=== PATIENT | male | born 1970 | race Caucasian/White ===

== ENCOUNTER 2019-06-15 08:19 | Emergency (ER) | payer OTHER, SELFPAY ==
--- NOTE | ~2019-06-15 | CT_ITS ---
EXAMINATION: CT abdomen pelvis w con EXAM DATE: 06/15/2019 09:04 INDICATION: Right inguinal pain, fever. TECHNIQUE: Spiral CT of the abdomen and pelvis was performed following intravenous injection of 100 m L Omnipaque 350. Axial, coronal and sagittal images were reviewed. The dose-length product (DLP) fo r this examination was 557.00 mGy-cm. The exposure was tailored according to patient size (auto mA e xposure control), and iterative reconstruction (ASIR) was used as additional dose reduction technique . Comparison is made to prior examination from 01/15/2009. FINDINGS: Small to moderate size right inguinal fat-containing hernia. There is also some ill-defined fat deep to the right inguinal canal which has mild stranding, mildly edematous, possible region of developing fat necrosis. The liver, spleen, adrenal glands and pancreas are unremarkable. There are cholecystectomy clips. Portal and splenic veins are patent. Kidneys enhance symmetrically. There i s no hydronephrosis. There is 2-3 mm right mid calyceal stone. There is similar sized density along t he course of the right mid ureter, could be vascular given the absence of hydronephrosis. Nonobstruct ing mid ureteral stone not excludable. The prostate is unremarkable. The bladder is unremarkable. There is no retroperitoneal or pelvic lymphadenopathy. Probable identification of a normal appendix. No pericecal inflammation. There is mild scattered colo lauren diverticulosis. There is no adjacent inflammatory change to suggest diverticulitis. There is sma ll sliding gastroesophageal hiatal hernia. There is expected amount of colonic stool. No free intr aperitoneal gas. Borderline heart size. There is 4 mm right posterior sulcal pleural-based intrapa renchymal nodule likely postinfectious. There are no osteoblastic or osteolytic lesions identified. IMPRESSION: 1. Small to moderate sized fat-containing right inguinal hernia. 2. Fat stranding deep to the right inguinal hernia which could be developing region of fat necrosis. 3. Right nephrolithiasis. Possible nonobstructing right mid ureteral stone versus vascular calcifica tion. No hydronephrosis. 4. Scattered colonic diverticulosis. 5. Right lower lobe 4 mm nodule likely postinfectious. Optional one-year follow-up low-dose chest C T, or this could be reevaluated on any follow-up abdomen pelvis CT. Reviewed, dictated and finalized at location B. [employer] IMPRESSION: 1. Small to moderate sized fat-containing right inguinal hernia. 2. Fat stranding deep to the right inguinal hernia which could be developing r egion of fat necrosis. 3. Right nephrolithiasis. Possible nonobstructing right mid ureteral stone sam rafaela vascular calcification. No hydronephrosis. 4. Scattered colonic diverticulosis. 5. Right lower lobe 4 mm nodule likely postinfectious. Optional one-year foll ow-up low-dose chest CT, or this could be reevaluated on any follow-up abdomen pelvis CT.
[2019-06-15 08:24] VITALS: BP 154/99; PULSE 87; RESP 16; TEMP 37.1; O2SAT 98
[2019-06-15 08:29] VITALS: BP 154/99; PULSE 97; RESP 18; O2SAT 98
--- NOTE | 2019-06-15 08:34 | PC.NURSE ---
SALAZAR MARTINEZ AT BEDSIDE FOR PT ASSESSMENT.
--- NOTE | 2019-06-15 08:40 | ED.MALEGU ---
HPI - Male Genitourinary General Chief complaint: Urogenital-Male Stated complaint: right groin pain Time Seen by Provider: 06/15/19 08:27 Source: patient Mode of arrival: ambulatory Limitations: no limitations History of Present Illness HPI Narrative: A 49 y/o male pt presents to the ED, with c/o acute rt inguinal pain that began this morning at 0640. Pt states he was driving to work when he began feeling nauseated and felt the emergent need to have a bowel movement. He states that he did have a bowel movement, but denies any blood in his stool or diarrhea. He notes feeling nauseated and having dry-heaves following his bowel movement. He states that the pain is constant and worsens when standing straight up, however when putting direct pressure to his rt lower inguinal he feels some relief. Pt notes having a similar episode to this about 15 years ago, that they thought was an inguinal hernia, but it ended up being inflammation. He states that he currently feels like he has to have a bowel movement and notes feeling pressure to his RLQ, but denies any fever, swelling to genitalia , dysuria, or hematuria. Complaint: other (rt inguinal pain) Onset (ago): hour(s) (3) Duration: constant Location: right inguinal region Radiation: abdomen (pressure in RLQ) Relieving factors: other (applying direct pressure to rt inguinal region) Exacerbating factors: other (standing straight up) Associated symptoms: Reports nausea/vomiting and other (sudden urge to pass stool, dry-heaves) Related Data Allergies Allergy/AdvReac Type Severity Reaction Status Date / Time No Known Allergies Allergy Unverified 06/15/19 08:31 Review of Systems Review of Systems: All systems reviewed & are unremarkable except as noted in HPI and below Constitutional: Constitutional: Denies fever(s) Gastrointestinal: Gastrointestinal: Reports abdominal pain (pressure in RLQ), Denies hematochezia, Reports change in bowel habits (sudden urge to pass stool), Reports tenesmus, Denies diarrhea, Reports nausea, Reports vomiting and Reports other (dry-heaves) Genitourinary: Genitourinary: Denies hematuria, Denies dysuria, Denies scrotal swelling and Reports other (rt inguinal pain) [facility] Past Medical History Medical History (Updated 06/15/19 @ 10:06 by Sigifredo Bowling MD) Asthma Irritable bowel Plaque psoriasis Surgical History Surgical History (Updated 06/15/19 @ 10:02 by Madonna Rosas [employer]) History of cholecystectomy History of vasectomy Social History Social History (Updated 06/15/19 @ 09:39 by Madonna Rosas [employer]) Smoking status: Never smoker Gender identity (if verbalized by the patient): Male Exam Const: General: healthy appearing and no acute distress Nutritional Appearance: well nourished HENMT: Mouth: Yes lip normal and Yes moist mucous membranes Eyes: Conjunctivae: conjunctivae normal Pupils: Equal, round and reactive pupils present Resp: Effort & Inspection: normal respiratory effort Auscultation: clear to auscultation bilaterally Cardio: Rate: regular rate Rhythm: regular rhythm Heart sounds: no murmurs GI: GI Palp: No Soft to palpation and No Tenderness to palpation present (GI) Auscultation: normal bowel sounds : Male General Exam: Yes tenderness (mild rt inguinal) Scrotum: scrotum normal Testes: Testes normal Back/Spine/Pelvis: Other: Full ROM Skin: General skin exam: normal color, dry skin and other (warm) Neuro: General: patient oriented x3 (alert) Speech: normal speech Extrem: General: full ROM Psych: Mental Status: mental status grossly normal Affect: normal affect Course Vital Signs Vital signs: Vital Signs Temperature 37.1 C 06/15/19 08:24 Pulse Rate 87 06/15/19 08:24 Respiratory Rate 16 06/15/19 08:24 Blood Pressure 154/99 H 06/15/19 08:24 Pulse Oximetry 98 06/15/19 08:24 Temperature 37.1 C 06/15/19 08:24 Pulse Rate 74 06/15/19 10:30 Respiratory Rate 16 06/15/19 1
[2019-06-15 08:48] LABS: Basophils Absolute Auto 0.1 K/mm3 (0.0-0.1); Basophils Percent Auto 0.8 % (0.2-1.2); Eosinophils Absolute Auto 0.1 K/mm3 (0-0.3); Eosinophils Percent Auto 0.6 % (0-4.4); Hematocrit 53.9 % (42.0-52.0); Hemoglobin 17.8 g/dL (14.0-18.0); Immature Granulocyte Absolute 0.07 K/mm3 (0.00-0.031); Immature Granulocyte Percent A 0.7 % (0-0.5); Lymphocytes Absolute Auto 1.62 K/mm3 (0.9-3.2); Lymphocytes Percent Auto 16.4 % (18.3-44.2); Mean Corpuscular Hemoglobin 29.9 pg (26-34); Mean Corpuscular Volume 90.6 fl (80-100); Mean Platelet Volume 9.6 fl (7.4-10.4); Monocytes Absolute Auto 0.6 K/mm3 (0.1-0.6); Monocytes Percent Auto 6.1 % (2.6-8.5); Neutrophils Absolute Auto 7.4 K/mm3 (1.3-6.7); Neutrophils Percent Auto 75.4 % (45.5-73.1); Platelet Count Result 337 k/mm3 (150-375); Red Blood Count 5.95 M/mm3 (4.6-6.20); Red Cell Distribution Width 12.8 % (11.5-14.5); White Blood Count 9.9 K/mm3 (4.5-10.0)
[2019-06-15 08:56] LABS: Blood Urea Nitrogen 15 mg/dL (8-26); Estimated CRCL calculation 56 ml/min; Estimated Glomerular Filt Rate 58
[2019-06-15 08:59] LABS: Add Urine Microscopic? YES; Appearance Urine Clear (Clear); Bacteria Urine Trace /hpf; Bilirubin Urine Negative (Negative); Blood Urine 2+ (Negative); Color Urine Yellow (Yellow); Glucose Urine UA Negative (Negative); Ketones Urine Trace mg/dL (Negative); Leukocyte Esterase Ur Negative LEU/UL (Negative); Mucus Urine Few /lpf; Nitrate Urine Negative (Negative); Protein Urine 1+ mg/dL (Negative); RBC Urine >75 /hpf (0-2); Specific Grav Ur 1.021 (1.001-1.035); Squamous Epithelial Cell Urine Rare /hpf (Few); Urobilinogen Urine Negative mg/dL (<2.0)
[2019-06-15 09:00] LABS: Alanine Aminotransferase 32 U/L (4-50); Albumin Level 4.8 g/dL (3.5-5.1); Alkaline Phosphatase 69 U/L (38-126); Aspartate Amino Transferase 34 U/L (17-59); Bilirubin,Total 0.7 mg/dL (0.2-1.3); Blood Urea Nitrogen 15 mg/dL (9-20); Calcium 9.9 mg/dL (8.4-10.2); Carbon Dioxide 28 mmol/L (22-30); Chloride 99 mmol/L (98-107); Estimated CRCL calculation 61 ml/min; Estimated Glomerular Filt Rate > 60; Glucose 102 mg/dL (75-110); Potassium 3.9 mmol/L (3.4-5.0); Sodium 139 mmol/L (137-145)
--- NOTE | 2019-06-15 09:09 | PC.NURSE ---
PT BACK FROM CT AT THIS TIME.
[2019-06-15] MEDS: KETOROLAC 30 MG/ML VIAL (*BKC) IV PUSH (09:36)
[2019-06-15 09:37] VITALS: BP 129/82; PULSE 74; RESP 16; O2SAT 98
[2019-06-15] MEDS: TAMSULOSIN HCL 0.4 MG CAPSULE PO (10:26)
[2019-06-15 10:30] VITALS: BP 103/66; PULSE 74; RESP 16; O2SAT 96
== END 2019-06-15 10:32 | disposition home or self-care (01) ==
PROVIDERS: Emergency Provider Emergency Medicine
DX: K40.90 Unilateral inguinal hernia, without obstruction or gangrene, not specified as recurrent (principal)
CPT/HCPCS: 36415; 74177; 80053; 81001; 85025; 96374; 96375; 99284; A9270; J1885; J3010; Q9967

== ENCOUNTER 2019-06-23 08:43 | Outpatient (CLI) | payer OTHER, SELFPAY ==
--- NOTE | ~2019-06-23 | XR_ITS ---
XR abdomen/kub 1V 06/25/2019 07:10 Indication: Kidney stones. Right abdominal pain. Procedure: KUB Comparison: 06/23/2019 Findings: Right renal stones noted on prior KUB R obscured by overlying bowel content. There is a desean cification in the right pelvis near the expected location of the UVJ, consistent with a 3 mm distal r ight ureteral stone. Bowel gas pattern is nonobstructive. No acute osseous abnormality. There are pel shivani phleboliths. There are cholecystectomy clips. Impression: 1: Distal right ureteral stone measuring 3 mm, unchanged. Reviewed, dictated and finalized at location B. 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
--- NOTE | ~2019-06-23 | XR_ITS ---
EXAMINATION: XR abdomen/kub 1V DATE: 06/23/2019 09:35 INDICATION: Right flank pain. TECHNIQUE: A supine view of the abdomen on 2 radiographs was obtained. COMPARISON: CT abdomen and pelvis 06/15/2019 FINDINGS: There are no dilated loops of bowel. There are two 3 mm stones in right kidney. There is a 3 mm stone in distal right ureter. There are phleboliths in left pelvis. IMPRESSION: 1. 3 mm stone in distal right ureter. 2. Two 3 mm right kidney stones. Reviewed, dictated and finalized at location A. L TRANSFERRER
[2019-06-23 08:48] VITALS: BP 146/97; PULSE 96; RESP 16; TEMP 36.7; O2SAT 98
--- NOTE | 2019-06-23 09:04 | ED.ABDPAIN ---
HPI - Abdominal Pain General Chief Complaint: Abdominal Pain Stated Complaint: right groin pain/hx kidney stone Time Seen by Provider: 06/23/19 09:00 Source: patient Mode of arrival: ambulatory Limitations: no limitations History of Present Illness HPI narrative: Pt is a 49 y/o male who presents to the ED with c/o RLQ ABD pain that started 8 days ago. He states that he came to the ED 8 days ago and was Dx with an inguinal hernia and a possible kidney stone. Pt was D/C home with Toradol and Flomax. He followed up with his PCP and has an appointment with Dr. Lewis, a general surgeon about his hernia. He does not have follow up with a urologist. He states that the Toradol has been helping but this morning he woke up with the same pain. He took Tylenol 1000mg at 0630 with no relief. Pt states that he feels like he needs to have a BM. He denies being nauseas in the ED bed. Pt also states that he gets a burning sensation at the tip of his penis and he has frequent but decreased urine output. MD elicited complaint: abdominal pain Pertinent past history: other (possible kidney stone) Onset (ago): day(s) (8) Pain Consistency: intermittent Location: RLQ Relieving factors: nothing Context: confirms history of similar episodes Associated symptoms: other (urinary frequency, oliguria, penile pain) Related Data Allergies Allergy/AdvReac Type Severity Reaction Status Date / Time No Known Allergies Allergy Unverified 06/15/19 08:31 Review of Systems Review of Systems: All systems reviewed & are unremarkable except as noted in HPI and below Gastrointestinal: Gastrointestinal: Reports abdominal pain (RLQ) and Denies nausea Genitourinary: Genitourinary: Reports oliguria, Reports urinary frequency and Reports other (burning pain to tip of penis) [facility] Past Medical History Medical History Asthma Irritable bowel Plaque psoriasis Surgical History Surgical History History of cholecystectomy History of vasectomy Family History Family History (Updated 06/17/19 @ 09:32 by Rani Peguero) Father Hypertension A-fib Mother CAD (coronary artery disease) Social History Social History Smoking status: Never smoker Alcohol intake: current 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 Gender identity (if verbalized by the patient): Male Exam Const: General: cooperative, no acute distress and alert Nutritional Appearance: well nourished Orientation/consciousness: patient oriented x3 Limitations: no limitations HENMT: Mouth: Yes lip normal and Yes moist mucous membranes Resp: Effort & Inspection: normal respiratory effort Auscultation: clear to auscultation bilaterally Cardio: Rate: regular rate Rhythm: regular rhythm GI: GI Palp: Yes Soft to palpation, Yes Tenderness to palpation present (GI) (RLQ) and Yes Other GI palpation findings present (no bulge or tenderness to rt inguinal region) Auscultation: normal bowel sounds Back/Spine/Pelvis: Back: CVA tenderness (rt) Skin: General skin exam: normal color Lesions: lesion noted (psoriasis) back Neuro: General: patient oriented x3 Cognition (Neuro): normal cognition Speech: normal speech Extrem: General: normal to inspection, full ROM and no clubbing, cyanosis or edema Psych: Mental Status: mental status grossly normal Affect: normal affect Attitude: cooperative Course Course Emergency Course: Patient presents with recurrent right flank and abdominal pain related to suspected right ureteral stone noted on CT scan last week. Pain improved significantly with Toradol in the emergency department. KUB shows migration of the stone compared to prior evaluation. Patient is out of Flomax and Toradol. These medications will be refilled and patient prescribe Zofran due to some intermittent nausea he has had. Fo
[2019-06-23] MEDS: KETOROLAC 30 MG/ML VIAL (*BKC) IV PUSH (09:40)
[2019-06-23 09:43] LABS: Basophils Absolute Auto 0.1 K/mm3 (0.0-0.1); Basophils Percent Auto 0.7 % (0.2-1.2); Eosinophils Absolute Auto 0.1 K/mm3 (0-0.3); Eosinophils Percent Auto 0.7 % (0-4.4); Hematocrit 51.2 % (42.0-52.0); Hemoglobin 17.4 g/dL (14.0-18.0); Immature Granulocyte Percent A 1.1 % (0-0.5); Lymphocytes Absolute Auto 1.84 K/mm3 (0.9-3.2); Lymphocytes Percent Auto 19.3 % (18.3-44.2); Mean Corpuscular Hemoglobin 29.9 pg (26-34); Mean Corpuscular Volume 88.1 fl (80-100); Mean Platelet Volume 9.4 fl (7.4-10.4); Monocytes Absolute Auto 0.6 K/mm3 (0.1-0.6); Neutrophils Absolute Auto 6.9 K/mm3 (1.3-6.7); Neutrophils Percent Auto 72.2 % (45.5-73.1); Platelet Count Result 351 k/mm3 (150-375); Red Blood Count 5.81 M/mm3 (4.6-6.20); Red Cell Distribution Width 12.6 % (11.5-14.5); White Blood Count 9.5 K/mm3 (4.5-10.0)
[2019-06-23 09:55] LABS: Add Urine Microscopic? YES; Alanine Aminotransferase 31 U/L (4-50); Albumin Level 4.6 g/dL (3.5-5.1); Alkaline Phosphatase 63 U/L (38-126); Appearance Urine Clear (Clear); Aspartate Amino Transferase 31 U/L (17-59); Bilirubin Urine Negative (Negative); Bilirubin,Total 0.9 mg/dL (0.2-1.3); Blood Urea Nitrogen 16 mg/dL (9-20); Blood Urine 3+ (Negative); Calcium 9.9 mg/dL (8.4-10.2); Carbon Dioxide 26 mmol/L (22-30); Chloride 101 mmol/L (98-107); Color Urine Yellow (Yellow); Estimated CRCL calculation 48 ml/min; Estimated Glomerular Filt Rate 49; Glucose 99 mg/dL (75-110); Glucose Urine UA Negative (Negative); Ketones Urine Negative (Negative); Leukocyte Esterase Ur Negative LEU/UL (Negative); Mucus Urine Heavy /lpf; Nitrate Urine Negative (Negative); Protein Urine 1+ mg/dL (Negative); RBC Urine >75 /hpf (0-2); Sodium 137 mmol/L (137-145); WBC Urine 0-3 /hpf
[2019-06-23] MEDS: ACETAMINOPHEN 500 MG TABLET 1000 MG PO (12:21)
[2019-06-23] MEDS: TAMSULOSIN HCL 0.4 MG CAPSULE PO (12:22)
[2019-06-23 12:25] VITALS: BP 145/88; PULSE 63; RESP 18; O2SAT 100
== END 2019-06-25 06:54 | disposition home or self-care (01) ==
LOC: ANHED 12:12 → ANHIMG 06-25 06:56
PROVIDERS: Emergency Provider Emergency Medicine; Visit Provider Urology
DX: N20.1 Calculus of ureter (principal)
CPT/HCPCS: 36415; 74018; 80053; 81001; 85025; 96374; 99284; A9270; J1885

== ENCOUNTER 2019-07-13 09:58 | Outpatient (CLI) | payer OTHER, SELFPAY ==
--- NOTE | ~2019-07-13 | XR_ITS ---
XR abdomen/kub 1V 07/13/2019 10:13 INDICATION: Flank pain TECHNIQUE: KUB COMPARISON: Comparison to multiple prior studies sequentially, with oldest reviewed study dated 06/15. FINDINGS: Bowel gas pattern is normal. There is no evidence of free air, mass, organomegaly, ascites or obstruction. There are multiple pelvic phleboliths, stable. No definite ureteral stones identifie d on the current study. The bones appear intact. IMPRESSION: 1: No acute abdominal abnormality identified. Reviewed, dictated and finalized at location A.
== END 2019-07-13 09:59 | disposition home or self-care (01) ==
PROVIDERS: Visit Provider Urology
DX: N20.1 Calculus of ureter (principal)
CPT/HCPCS: 74018

== ENCOUNTER 2019-08-11 00:28 | Day surgery (SDC) | payer OTHER, SELFPAY ==
[2019-08-09 13:45] VITALS: BMI 33.6
[2019-08-11] VITALS (8 sets, daily range): BP systolic 72–133; BP diastolic 45–83; PULSE 62–70; RESP 12–20; TEMP 36.2–36.4; O2SAT 89–98
[2019-08-11] MEDS: LACTATED RINGERS 1,000 ML 30 ML IV CONT ×3 (06:30→09:45)
--- NOTE | 2019-08-11 07:17 | WPDANESEPPF ---
Anes - Initial Pre Proc Eval Procedure: Operation Date: 08/11/19 07:30 Proposed Procedures p Laparoscopic Right Inguinal Hernia Repair with Mesh, Davinci Assisted - Carlos Alberto Lewis DO Date/Time: 08/11/19 07:17 Surgeon: Carlos Alberto Lewis DO Pre Op Diagnosis: Right Inguinal Hernia Patient Data Age: 49 Gender: M Height: 5 ft 1 in Weight: 81.9 kg Last Vital Signs Temp 97.5 F L 08/11/19 06:24 Pulse 64 08/11/19 06:24 Resp 20 08/11/19 06:24 BP 124/83 08/11/19 06:24 Pulse Ox 98 08/11/19 06:24 Allergies Allergy/AdvReac Type Severity Reaction Status Date / Time No Known Allergies Allergy Verified 08/11/19 06:52 Home Medications Medication Instructions Recorded Confirmed Type risankizumab-rzaa [Skyrizi] 150 mg SUBCUT [id number] 08/09/19 08/11/19 History Patient hx anesthesia problems: none Family hx anesthesia problems: none [facility] Social History Social History Smoking status: Never smoker Alcohol intake: current 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 Questions were solicited and answers provided to the satisfaction of the patient/family/POA.
--- NOTE | 2019-08-11 07:24 | PM.IMHP ---
H&P: HPI History of Present Illness Chief complaint: Right Inguinal Hernia Narrative: Abhinav Varghese is a 49 year old male who presents for RIH repair. He was having right groin pain and went to the ED in May. CT showed evidence of RIH containing fat. He continues to have symptoms and has to do heavy labor with work. 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 Gender identity (if verbalized by the patient): Male Meds Home Medications and Allergies Home Medications Medication Instructions Recorded Confirmed Type risankizumab-rzaa [Skyrizi] 150 mg SUBCUT [id number] 08/09/19 08/11/19 History Allergies Allergy/AdvReac Type Severity Reaction Status Date / Time No Known Allergies Allergy Verified 08/11/19 06:52 Vital Signs Vital Signs - 24 hr 08/11/19 06:24 Temperature 36.4 C L Pulse Rate 64 Respiratory Rate 20 Blood Pressure 124/83 Pulse Oximetry 98 Exam : Scrotum: inguinal hernia (moderate sized) on the right Assessment and Plan Assessment and plan (1) Reducible right inguinal hernia: Code(s): K40.90 - Unilateral inguinal hernia, without obstruction or gangrene, not specified as recurrent Status: Acute Assessment and Plan: I have recommended laparoscopic right inguinal hernia repair with mesh, da Cheryl assisted. I have discussed the procedure, risks, benefits, and alternatives with the patient. All questions answered. No changes since last seen in office.
[2019-08-11] MEDS: ceFAZolin 2 GM/D5W 50 ML 2 GM/50 ML BAG IVPB (07:38)
[2019-08-11] MEDS: IBUPROFEN IV 800 MG/200 ML 800 MG/200 ML BAG 400 MG IVPB (07:38)
[2019-08-11] MEDS: BUPIVACAINE/EPINEPHRINE 0.5% 30 ML VIAL INFILTRATE (08:22)
--- NOTE | 2019-08-11 08:50 | PM.PROC ---
Procedure Note - Detailed Date of procedure: 08/11/19 Pre-op diagnosis: Right Inguinal Hernia Post-op diagnosis: other (Incarcerated right direct inguinal hernia) Procedure performed: Laparoscopic incarcerated right inguinal hernia repair with Progrip mesh, da Cheryl assisted Description of procedure: Procedure as well as risks, benefits, and alternatives were discussed with the patient. Written consent was obtained and placed in chart prior to procedure. Patient was brought back to surgical suite. He was placed supine on operating table. Time-out was done to confirm patient and procedure. He was then intubated by Anesthesia Department. His abdomen was prepped and draped in sterile fashion using chlorhexidine prep. 0.5% bupivacaine with epinephrine was infiltrated at each location for incision. An 8 mm incision was made in the left lateral abdomen, and a 5 mm Optiview trocar was advanced through the abdominal layers under direct visualization. Once inside the abdominal cavity, carbon dioxide insufflation was used to create a pneumoperitoneum. A camera was inserted and the abdominal cavity was inspected. The patient was placed in slight Trendelenburg position. An 8 millimeter incision was made on the right lateral abdomen and an 8 millimeter trocar was inserted under direct visualization. Another 8 millimeter incision was made just superior to the umbilicus and an 8 millimeter trocar was inserted under direct visualization. The 5 mm port was then removed and this was replaced with another 8 mm robotic port. The robotic arms were brought up to the patient's bedside and secured to the ports. The camera and instruments were inserted. I then moved over to the robotic console and took control of the camera and instruments. After careful inspection of the abdominal cavity, I began scoring the peritoneum along the right lower quadrant using scissors with electrocautery. The preperitoneal plane was entered and this was carefully dissected caudally along the inferior epigastric vessels. Careful dissection with scissors with electrocautery and blunt dissection was used to continue this dissection. I dissected far enough laterally to allow for mesh placement, and also dissected medially to identify the pubic arch and Cole's ligament. The hernia sac was identified and carefully dissected posteriorly. The cord contents were also identified and the peritoneum was carefully dissected far enough posteriorly to allow for mesh placement. Once an adequate pocket was created, I then placed the mesh within the preperitoneal pocket and carefully unfolded it. The mesh was centered on the hernia defect with adequate overlap circumferentially. The inferior edge of the mesh was inspected to ensure that it was far enough away from the peritoneal edge. The mesh appeared in proper position overlying the entire myopectineal orifice. The peritoneum was then closed over the mesh using a 3-0 V-lock running absorbable suture. The robotic instruments were removed. The robotic arms were disengaged from the ports and moved away from the bedside. The patient was flattened out in bed, the ports were removed under direct visualization, and the pneumoperitoneum was released. The skin of the incisions was approximated using 4-0 Monocryl subcuticular suture, and Exofin glue was applied on top. The patient was awakened from anesthesia, extubated, and transferred to recovery. Implants: Progrip Mesh 10cm x 15cm Anesthesia: GETA and local (0.5% bupivicaine with epi) Surgeon: Carlos Alberto Lewis DO Estimated blood loss (mL): 5 Drains: No Packing: No Pathology: none sent Complications: No immediate complications Condition: stable Disposition: same day Findings: This is a 49-year-old man who presented with right groin pain for the past several months. He initially noted an acute onset of pain and went to the ED back in May. CT at that time showed evidence of a right inguinal hernia cont
== END 2019-08-11 11:02 | disposition home or self-care (01) ==
PROVIDERS: PCP Nurse Practitioner Family; Visit Provider Surgery
PROC: 8E0Y4CZ Robotic Assisted Procedure of Lower Extremity, Percutaneous Endoscopic Approach (ICD-10-PCS; CPT 49650; principal; 2019-08-11 07:30)
DX: K40.30 Unilateral inguinal hernia, with obstruction, without gangrene, not specified as recurrent (principal); L40.0 Psoriasis vulgaris
CPT/HCPCS: 49650; S2900; 36415; 86850; 86900; 86901; A9270; C1781; J0690; J1100; J1741; J2250; J2405; J2704; J2710; J3010; J7030; J7120

== ENCOUNTER 2020-05-20 15:03 | Emergency (ER) | payer OTHER, SELFPAY ==
--- NOTE | ~2020-05-20 | CT_ITS ---
EXAMINATION: CT abdomen pelvis w con DATE: 05/20/2020 17:09 INDICATION: Left lower quadrant abdominal pain. Left flank pain. TECHNIQUE: Computed tomography (CT) of the abdomen and pelvis was performed with 100 cc Omnipaque 350 intravenous contrast. Automated exposure control and iterative reconstruction technique were employe d. Exam dose: 657.10 mGy-cm total exam DLP. COMPARISON: 06/15/2019 CT abdomen pelvis FINDINGS: Right lower lobe calcified pulmonary granulomas. The lung bases are clear of infiltrate or consolidation. Heart size is within normal range. No pericardial or pleural effusion. Small sliding hiatal hernia. Probable very small medial segment left hepatic cyst. Very small posterior right hepatic cyst. Status post cholecystectomy. No bile duct or pancreatic duct dilatation. No pancreatic mass lesion or calcification. Normal splenic size. Normal morphology of the adrenal glands. Small posterior lower pole right renal cortical cyst. No other renal mass lesion. Approximately 2 x 3.5 mm nonobstructing lower pole right renal calculus. No ureteral calculus or hydroureteronephrosis. The urinary bladder is unremarkable. Prominent prostate calcifications. There are multiple diverticula of the sigmoid and descending colon and splenic flexure. There is pericolic fat stranding at the distal descending colon as well as mild thickening of the lat eral conal fascia in this region, consistent with mild distal descending colon diverticulitis. Normal caliber of the abdominal aorta. No intraperitoneal or retroperitoneal or pelvic mass lesion or adenopathy or ascites. Small fat-containing inguinal hernias. Right L5 pars interarticularis defect. No suspicious osteolytic or osteoblastic lesions are noted. IMPRESSION: Mild diverticulitis of the distal descending colon; no evidence of abscess Diverticulosis of the left colon Multiple prostate calcifications Small sliding hiatal hernia Small hepatic and right renal cysts Status post cholecystectomy Right L5 pars intra-articular is defect Reviewed, dictated and finalized at [facility] Reviewed, dictated and finalized at [facility] [employer]
[2020-05-20 15:15] VITALS: BP 147/96; PULSE 112; RESP 17; TEMP 36.2; O2SAT 98
[2020-05-20 15:35] LABS: Basophils Absolute Auto 0.1 K/mm3 (0.0-0.1); Basophils Percent Auto 0.6 % (0.2-1.2); Eosinophils Absolute Auto 0.1 K/mm3 (0-0.3); Eosinophils Percent Auto 0.9 % (0-4.4); Hematocrit 48.8 % (42.0-52.0); Hemoglobin 16.7 g/dL (14.0-18.0); Immature Granulocyte Absolute 0.11 K/mm3 (0.00-0.031); Immature Granulocyte Percent A 0.8 % (0-0.5); Lymphocytes Absolute Auto 2.43 K/mm3 (0.9-3.2); Lymphocytes Percent Auto 17.4 % (18.3-44.2); Mean Corpuscular HGB Conc 34.2 g/dl (32-36); Mean Corpuscular Hemoglobin 30.8 pg (26-34); Mean Corpuscular Volume 89.9 fl (80-100); Mean Platelet Volume 9.3 fl (7.4-10.4); Monocytes Absolute Auto 0.8 K/mm3 (0.1-0.6); Monocytes Percent Auto 5.4 % (2.6-8.5); Neutrophils Absolute Auto 10.5 K/mm3 (1.3-6.7); Neutrophils Percent Auto 74.9 % (45.5-73.1); Platelet Count Result 284 k/mm3 (150-375); Red Blood Count 5.43 M/mm3 (4.6-6.20); Red Cell Distribution Width 12.6 % (11.5-14.5)
[2020-05-20 15:46] LABS: Anion Gap 1 mmol/L (8-16); Blood Urea Nitrogen 18 mg/dL (9-20); Calcium 9.3 mg/dL (8.4-10.2); Carbon Dioxide 30 mmol/L (22-30); Chloride 104 mmol/L (98-107); Estimated CRCL calculation 57 ml/min; Estimated Glomerular Filt Rate > 60; Glucose 116 mg/dL (75-110); Potassium 3.9 mmol/L (3.4-5.0); Sodium 135 mmol/L (137-145)
[2020-05-20] MEDS: TAMSULOSIN HCL 0.4 MG CAPSULE PO (15:50)
[2020-05-20] MEDS: KETOROLAC 15 MG/ML VIAL (*BKC) IV PUSH (15:50)
[2020-05-20 16:08] LABS: Add Urine Microscopic? NO; Appearance Urine Clear (Clear); Bilirubin Urine Negative (Negative); Blood Urine Negative (Negative); Color Urine Yellow (Yellow); Glucose Urine UA Negative (Negative); Ketones Urine Negative (Negative); Leukocyte Esterase Ur Negative LEU/UL (Negative); Nitrate Urine Negative (Negative); Protein Urine Negative (Negative); Specific Grav Ur 1.019 (1.001-1.035); Urobilinogen Urine Negative mg/dL (<2.0)
--- NOTE | 2020-05-20 17:15 | ED.ABDPAIN ---
HPI - Abdominal Pain General Chief Complaint: Abdominal Pain Stated Complaint: left flank pain Time Seen by Provider: 05/20/20 15:20 Source: patient Mode of arrival: ambulatory Limitations: no limitations History of Present Illness HPI narrative: 50-year-old male History of kidney stones and of a right inguinal hernia repair last year Complains of of left-sided abdominal pain which began this morning It is somewhat reminiscent of but not exactly like the discomfort that he had with the kidney stone, the character is about the same but the severity is less He does not have any urinary symptoms, no hematuria No fever no constipation and no diarrhea Discomfort is somewhat exacerbated by moving MD elicited complaint: abdominal pain and flank pain Related Data Home Medications Medication Instructions Recorded Confirmed Skyrizi 150 mg SUBCUT [id number] 08/09/19 08/27/19 Allergies Allergy/AdvReac Type Severity Reaction Status Date / Time No Known Allergies Allergy Verified 05/20/20 15:06 Review of Systems Review of Systems: All systems reviewed & are unremarkable except as noted in HPI and below Constitutional: Constitutional: Denies chills, Denies fatigue, Denies fever(s), Denies headache(s) and Denies weakness Eyes: Eyes: Reports no additional eye complaints and Denies change in vision ENT: Denies headache(s), Denies epistaxis, Denies nasal congestion and Denies sore throat Cardiovascular: Cardiovascular: Denies chest pain, Denies leg edema, Denies palpitations and Denies dyspnea Respiratory: Respiratory: Denies cough, Denies dyspnea and Denies wheezing Gastrointestinal: Gastrointestinal: Reports abdominal pain, Denies diarrhea, Denies nausea and Denies vomiting Genitourinary: Genitourinary: Denies hematuria, Denies dysuria and Denies urinary frequency Musculoskeletal: Musculoskeletal: Denies deformity, Denies arthralgias, Denies joint swelling, Denies muscle weakness and Denies numbness Integumentary/Breasts: Skin/Breast: Denies rash and Denies wounds Neurologic: Denies headache(s), Denies focal weakness, Denies numbness and Denies weakness Psychiatric: Psychiatric: Reports no additional psychiatric complaints Endocrine: Endocrine: Denies fatigue and Denies palpitations Hematologic/Lymphatic: Hematologic/Lymphatic: Denies easy bleeding and Denies easy bruising Allergic/Immunologic: Allergic/Immunologic: Denies wheezing PMFSH Past Medical History Medical History (Updated 05/20/20 @ 17:59 by Joey Figueroa MD) Asthma Irritable bowel Plaque psoriasis Surgical History Surgical History History of cholecystectomy History of vasectomy Family History Family History Father Hypertension A-fib Mother CAD (coronary artery disease) Social History Social History Smoking status: Never smoker Alcohol intake: current 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 Gender identity (if verbalized by the patient): Male Exam Const: General: no acute distress, well developed and awake Nutritional Appearance: well nourished Orientation/consciousness: patient oriented x3 (alert) Limitations: no limitations HENMT: Head: normocephalic and atraumatic Ears: external ears normal General nose exam: No nasal discharge present and no epistaxis Face and sinus: face symmetric Eyes: Conjunctivae: conjunctivae normal Sclera: sclerae normal EOM: EOMs intact bilaterally Neck: Neck: normal visual inspection, supple and no JVD Chest: Chest palpation & inspection: deferred Resp: Effort & Inspection: normal respiratory effort Auscultation: clear to auscultation bilaterally, no rales, no rhonchi, no wheezes and other (BS =) Cardio: Rate: regular rate Rhythm: regular rhythm Heart sounds: no gallops and no murmurs
== END 2020-05-20 18:57 | disposition home or self-care (01) ==
PROVIDERS: General Practice; Emergency Provider Emergency Medicine; PCP Nurse Practitioner Family
DX: K57.32 Diverticulitis of large intestine without perforation or abscess without bleeding (principal); J45.909 Unspecified asthma, uncomplicated; K58.9 Irritable bowel syndrome, unspecified; L40.0 Psoriasis vulgaris; K57.90 Diverticulosis of intestine, part unspecified, without perforation or abscess without bleeding; K44.9 Diaphragmatic hernia without obstruction or gangrene; K76.89 Other specified diseases of liver; N28.1 Cyst of kidney, acquired
CPT/HCPCS: 36415; 74177; 80048; 81003; 85025; 96374; 99284; A9270; J1885; Q9967

== ENCOUNTER 2022-11-08 18:08 | Emergency (ER) | payer BC, SELFPAY ==
--- NOTE | 2022-11-08 18:13 | ED.WOUNDLAC ---
HPI - Wound/Laceration General Chief Complaint: Wound/Laceration Stated Complaint: Cut Middle Finger Lt Hand Time Seen by Provider: 11/08/22 18:24 Source: patient and RN notes reviewed Mode of arrival: ambulatory Limitations: no limitations History of Present Illness HPI narrative: 52-year-old male presents with concern for laceration to the 3rd digit of his left hand. Reports he lacerated about 15 minutes ago on a piece of stainless steel. He does not up-to-date on his tetanus vaccination. He denies decreased strength, sensation, range of motion in the digit. Extremity Location: Left: hand Related Data Home Medications Medication Instructions Recorded Confirmed risankizumab-rzaa 150 mg/1.66 mL 150 mg subcut [id number] 08/09/19 11/08/22 (75 mg/0.83mL x 2) subcut syringe kit (Skyrizi) Allergies Allergy/AdvReac Type Severity Reaction Status Date / Time No Known Allergies Allergy Verified 11/08/22 18:43 Review of Systems Review of Systems: CONSTITUTIONAL: Denies malaise, chills, sweats, or fever. SKIN: Reports laceration to the medial aspect of the 3rd digit of the left hand MUSCULOSKELETAL: Denies muscle skeletal pain NEUROLOGIC: Denies numbness, weakness All systems reviewed & are unremarkable except as noted in HPI and below PMFSH Past Medical History Medical History (Updated 11/08/22 @ 18:35 by Jennifer Escamilla NP) Asthma Irritable bowel Plaque psoriasis Surgical History Surgical History History of cholecystectomy History of vasectomy Family History Family History Father Hypertension A-fib Mother CAD (coronary artery disease) Social History Social History Smoking status: Never smoker Alcohol intake: current Living arrangements: with family Occupation/Education: occupation 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 There is no relevant family history pertinent to the presenting complaint Exam Narrative: GENERAL: Well-appearing, well-nourished, and in no acute distress. HEAD: Normocephalic EYES: PERRLA, conjunctivae clear NECK: Supple. CHEST: Speaks in full sentences. No respiratory distress. HEART: Regular rate and rhythm. Normal and equal peripheral pulses. EXTREMITIES: 3rd digit of left hand has normal strength and sensation. 5/5 strength with digit flexion, extension. Range of motion normal. No clubbing, cyanosis, or edema noted. No point tenderness. normal digital cascade with flexion of fingers, median, ulnar and radial nerve intact. Normal sensation of each side of finger. Can perform 'okay' sign, 'cross over finger test of index and middle fingers' and 'thumbs up' sign. No scissoring. Normal thumb opposition. Good capillary refill and radial pulse. Distal capillary refill less than 3 seconds. Patient is right/left hand dominant SKIN: Warn, dry, intact, pink. No rash. 1.5 cm linear laceration noted to the medial aspect of the 3rd digit of the left hand into the subcutaneous tissue NEURO: Alert and oriented x3. PSYCH: Normal mood and affect Course Course Emergency Course: Patient is aware of diagnosis, understands and agrees to treatment plan. Anticipatory guidance given. Patient agrees to follow-up as directed and is aware of reasons to seek care at the emergency department. Portions of this record may have been created with voice recognition software Level of Care: Express Care Visit Vital Signs Vital signs: Reviewed. Procedures Laceration Laceration 1: Date: 11/08/22 Time: 18:30 Site: hand Side (If applicable): left Size (cm): 1.5 Description: linear Depth: si
[2022-11-08 18:20] VITALS: BP 127/77; PULSE 85; RESP 16; TEMP 36.5; O2SAT 97
[2022-11-08] MEDS: TETANUS,DIPHTHERIA,AC PERTUSSIS ADULT (0.5 ML) BOOSTRIX IM (18:34)
== END 2022-11-08 18:54 | disposition home or self-care (01) ==
PROVIDERS: Emergency Provider Nurse Practitioner; PCP Nurse Practitioner Family
DX: S61.213A Laceration without foreign body of left middle finger without damage to nail, initial encounter (principal); W45.8XXA Other foreign body or object entering through skin, initial encounter; Z23 Encounter for immunization; J45.909 Unspecified asthma, uncomplicated; L40.0 Psoriasis vulgaris
CPT/HCPCS: 12001; 90471; 90715; 99212; G0463

== ENCOUNTER 2022-11-18 10:52 | Emergency (ER) | payer BC, SELFPAY ==
[2022-11-18 11:06] VITALS: BP 112/71; PULSE 79; RESP 18; TEMP 36.5; O2SAT 100
--- NOTE | 2022-11-18 11:16 | ED.WOUNDLAC ---
HPI - Wound/Laceration General Chief Complaint: Unspecified Stated Complaint: suture removal Source: patient Mode of arrival: ambulatory Limitations: no limitations History of Present Illness HPI narrative: 52-year-old male presented for suture removal. Three sutures placed to the 3rd digit of the left hand on 11/08/2022. Patient denies any redness, pain, drainage, decreased range of motion. Related Data Home Medications Medication Instructions Recorded Confirmed risankizumab-rzaa 150 mg/1.66 mL 150 mg subcut [id number] 08/09/19 11/18/22 (75 mg/0.83mL x 2) subcut syringe kit (Skyrizi) Allergies Allergy/AdvReac Type Severity Reaction Status Date / Time No Known Allergies Allergy Verified 11/18/22 11:26 Review of Systems Review of Systems: CONSTITUTIONAL: Denies body aches, fever, chills, or sweats. EYES: Denies visual changes, redness, or discharge. ENT: Denies rhinorrhea, congestion CARDIOVASCULAR: Denies chest pain, palpitations, or edema. RESPIRATORY: Denies cough or dyspnea. GASTROINTESTINAL: Denies abdominal pain, nausea, vomiting, or diarrhea. SKIN: 3 surgeries to left middle finger MUSCULOSKELETAL: Denies back pain, joint pain, or myalgia. NEUROLOGIC: Denies headache, numbness, tingling, or weakness. 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 Please see nursing chart for further information. There is no relevant family history pertinent to the presenting complaint Exam Narrative: GENERAL: Well-appearing HEAD: Normocephalic, atraumatic. EYES: conjunctivae clear, and EOMI. ENT: Mucous membranes moist. Oropharynx without edema, erythema or lesions. NECK: Supple. No lymphadenopathy CHEST: Clear to auscultation. HEART: Regular rate and rhythm. SKIN: Warm, dry. Left 3rd digit medial aspect with approximately 1.5 cm healing laceration, [address] Mild surrounding erythema without induration, tenderness, or purulent drainage. NEURO: Alert and oriented x3. Course Course Emergency Course: Patient is aware of diagnosis, understands and agrees to treatment plan. Anticipatory guidance given. Patient agrees to follow-up as directed and is aware of reasons to seek care at the emergency department. Portions of this record may have been created with voice recognition software Level of Care: Express Care Visit Vital Signs Vital signs: Vital Signs Temperature 97.7 F 11/18/22 11:06 Pulse Rate 79 11/18/22 11:06 Respiratory Rate 18 11/18/22 11:06 Blood Pressure 112/71 11/18/22 11:06 Pulse Oximetry 100 11/18/22 11:06 Oxygen Delivery Room Air 11/18/22 11:06 Temperature 97.7 F 11/18/22 11:06 Pulse Rate 79 11/18/22 11:06 Respiratory Rate 18 11/18/22 11:06 Blood Pressure 112/71 11/18/22 11:06 Pulse Oximetry 100 11/18/22 11:06 Oxygen Delivery Room Air 11/18/22 11:06 Reviewed Procedures Other Procedure Procedure 1: Other Procedure: Three sutures removed from the left 3rd digit medial aspect. No difficulty or complication. Tolerated well. MDM - Wound/Lacerat
== END 2022-11-18 11:27 | disposition home or self-care (01) ==
PROVIDERS: Emergency Provider Nurse Practitioner Family; PCP Nurse Practitioner Family
DX: S61.213D Laceration without foreign body of left middle finger without damage to nail, subsequent encounter (principal); X58.XXXD Exposure to other specified factors, subsequent encounter; J45.909 Unspecified asthma, uncomplicated; Z98.52 Vasectomy status
CPT/HCPCS: 99211; G0463

== ENCOUNTER 2023-04-28 03:09 | Emergency (ER) | payer BC, SELFPAY ==
--- NOTE | ~2023-04-28 | CT_ITS ---
Non-contrast CT scan of the Abdomen and Pelvis Clinical indication: Flank pain Technique: 2.5 mm axial scans were obtained through the abdomen and pelvis without intravenous or or al contrast. Dose reduction technique was used on this scan by utilizing automated exposure control a nd iterative reconstruction technique. The dose-length product (DLP) was 323.23 mGy-cm. COMPARISON: 05/20/2020 Findings: Images through the lung bases reveal no abnormalities. 5 mm stone present at the very distal right ureter, with minimal right hydroureteronephrosis. Additio nal small nonobstructing right renal stone present. No left renal or left ureteral stone. No left hyd ronephrosis. The liver, spleen, pancreas, and adrenals appear normal. Cholecystectomy clips are present. There is no aortic aneurysm. There is no evidence of bowel obstruction. Images through the pelvis were performed. There is no evidence of ascites or lymphadenopathy. Urinary bladder unremarkable. No pelvic mass seen. Impression: 5 mm distal right ureteral stone with minimal right hydroureteronephrosis. Additional small nonobstructing right renal stone. Reviewed, dictated and finalized at [facility] Impression: 5 mm distal right ureteral stone with minimal right hydroureteronephrosis. Additional small nonobstructing right renal stone.
[2023-04-28 03:10] VITALS: BP 144/100; PULSE 78; RESP 18; TEMP 36.4; O2SAT 100
[2023-04-28 03:35] LABS: Basophils Absolute Auto 0.1 K/mm3 (0.0-0.1); Eosinophils Absolute Auto 0.3 K/mm3 (0-0.3); Eosinophils Percent Auto 3.2 % (0-4.4); Hematocrit 52.2 % (42.0-52.0); Hemoglobin 17.1 g/dL (14.0-18.0); Immature Granulocyte Absolute 0.05 K/mm3 (0.00-0.031); Immature Granulocyte Percent A 0.6 % (0-0.5); Lymphocytes Absolute Auto 2.73 K/mm3 (0.9-3.2); Lymphocytes Percent Auto 33.6 % (18.3-44.2); Mean Corpuscular HGB Conc 32.8 g/dl (32-36); Mean Corpuscular Hemoglobin 30.3 pg (26-34); Mean Corpuscular Volume 92.4 fl (80-100); Mean Platelet Volume 9.3 fl (7.4-10.4); Monocytes Absolute Auto 0.7 K/mm3 (0.1-0.6); Monocytes Percent Auto 8.4 % (2.6-8.5); Neutrophils Absolute Auto 4.3 K/mm3 (1.3-6.7); Neutrophils Percent Auto 53.2 % (45.5-73.1); Platelet Count Result 299 k/mm3 (150-375); Red Blood Count 5.65 M/mm3 (4.6-6.20); Red Cell Distribution Width 13.1 % (11.5-14.5); White Blood Count 8.1 K/mm3 (4.5-10.0)
[2023-04-28 03:38] LABS: Appearance Urine Clear (Clear); Bacteria Urine None Seen /hpf; Bilirubin Urine Negative (Negative); Blood Urine 1+ (Negative); Color Urine Yellow (Yellow); Glucose Urine UA Negative (Negative); Ketones Urine Negative (Negative); Leukocyte Esterase Ur Negative LEU/UL (Negative); Nitrate Urine Negative (Negative); Non Pathogenic Casts 0-2; Protein Urine Negative (Negative); Specific Grav Ur 1.024 (1.001-1.035); Squamous Epithelial Cell Urine None seen /hpf (Few); WBC Urine 0-5 /hpf; pH Urine 5.5 (5.0-9.0)
[2023-04-28 03:44] LABS: Add Urine Microscopic? YES
[2023-04-28 03:54] LABS: Alanine Aminotransferase 26 U/L (6-50); Albumin Level 4.3 g/dL (3.5-5.1); Alkaline Phosphatase 70 U/L (38-126); Anion Gap 8 mmol/L (8-16); Aspartate Amino Transferase 28 U/L (17-59); Bilirubin,Total 0.5 mg/dL (0.2-1.3); Blood Urea Nitrogen 15 mg/dL (9-20); Carbon Dioxide 28 mmol/L (22-30); Chloride 103 mmol/L (98-107); Estimated CRCL calculation 58 ml/min; Estimated Glomerular Filt Rate > 60; Glucose 93 mg/dL (65-110); Potassium 3.9 mmol/L (3.4-5.0); Sodium 139 mmol/L (137-145)
[2023-04-28] MEDS: SODIUM CHLORIDE 0.9% IV 1,000 ML 999 ML IV CONT (04:40)
[2023-04-28] MEDS: ONDANSETRON INJ 4 MG/2 ML VIAL IV PUSH (04:41)
[2023-04-28] MEDS: HYDROmorphone HCL INJ (*CRX) 1 MG/ML SYR IV PUSH ×2 (04:43→06:03)
[2023-04-28] MEDS: TAMSULOSIN HCL 0.4 MG CAPSULE PO (04:45)
--- NOTE | 2023-04-28 04:45 | ED.GENADULT ---
HPI - General Adult General Chief complaint: Abdominal Pain Stated complaint: kidney stones Time Seen by Provider: 04/28/23 04:23 History of Present Illness HPI narrative: Patient 52-year-old gentleman who presents emergency department chief complaint of right-sided flank and right inguinal pain. Patient reports he has prior history of kidney stones reports on night he noticed that the uncomfortable feeling that then passed. The patient states this evening pain came back with folded units and reports that feels similar to when he has had kidney stones in the past. Related Data Home Medications Medication Instructions Recorded Confirmed risankizumab-rzaa 150 mg/1.66 mL 150 mg subcut [id number] 08/09/19 11/18/22 (75 mg/0.83mL x 2) subcut syringe kit (Skyrizi) Allergies Allergy/AdvReac Type Severity Reaction Status Date / Time No Known Allergies Allergy Verified 11/18/22 11:26 Review of Systems Review of Systems: A 10 system review of systems was completed on the patient and is negative except for what is stated in the HPI. Nursing and ancillary documentation was reviewed. 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 HEAD: Normocephalic, atraumatic. EYES: PERRLA and EOMI. ENT: Nares clear, no rhinorrhea or epistaxis. Mucous membranes moist. NECK: Supple. CHEST: Clear to auscultation. No respiratory distress. HEART: Regular rate and rhythm. No murmur heard. Normal peripheral pulses. ABDOMEN: Soft, nontender, nondistended, normal active bowel sounds. EXTREMITIES: Normal range of motion. No edema. SKIN: Warm, dry, no rash. NEURO: No focal deficits. Alert and oriented x3. PSYCH: Normal mood and affect. Course Vital Signs Vital signs: Vital Signs Temperature 36.4 C L 04/28/23 03:10 Pulse Rate 78 04/28/23 03:10 Respiratory Rate 18 04/28/23 03:10 Blood Pressure 144/100 H 04/28/23 03:10 Pulse Oximetry 100 04/28/23 03:10 Temperature 36.4 C L 04/28/23 03:10 Pulse Rate 78 04/28/23 03:10 Respiratory Rate 18 04/28/23 03:10 Blood Pressure 144/100 H 04/28/23 03:10 Pulse Oximetry 100 04/28/23 03:10 Medical Decision Making MDM Narrative Medical decision making narrative: Differential diagnosis includes kidney stone, UTI, Laboratory studies were obtained on the patient which showed a white count of 8.1 renal function was normal electrolytes urinalysis showed 6-[address] scan showed a 5 mm distal ureteral stone the patient's pain was controlled VR the patient discharged with follow-up with Urology Vital Signs Vital Signs: Vital Signs Temperature 36.4 C L 04/28/23 03:10 Pulse Rate 78 04/28/23 03:10 Respiratory Rate 18 04/28/23 03:10 Blood Pressure 144/100 H 04/28/23 03:10 Pulse Oximetry 100 04/28/23 03:10 Temperature 36.4 C L 04/28/23 03:10 Pulse Rate 78 04/28/23 03:10 Respiratory Rate 18 04/28/23 03:10 Blood Pressure 144/100 H 04/28/23 03:10 Pulse Oximetry 100 04/28/23 03:10 Lab Data 04/28/23 03:21 04/28/23 03:21 Labs: Lab Results 04/28/23 Range/Uni
[2023-04-28 07:05] VITALS: BP 139/92; PULSE 76; RESP 18; O2SAT 100
== END 2023-04-28 07:09 | disposition home or self-care (01) ==
PROVIDERS: Emergency Provider Emergency Medicine; PCP Nurse Practitioner Family
DX: N13.2 Hydronephrosis with renal and ureteral calculous obstruction (principal); J45.909 Unspecified asthma, uncomplicated; K58.9 Irritable bowel syndrome, unspecified; L40.0 Psoriasis vulgaris; Z90.49 Acquired absence of other specified parts of digestive tract
CPT/HCPCS: 36415; 74176; 80053; 81001; 85025; 96361; 96374; 96375; 96376; 99284; A9270; J1170; J2405; J7030

== ENCOUNTER 2023-11-20 08:48 | Emergency (ER) | payer BC, SELFPAY ==
[2023-11-20 09:01] VITALS: BP 138/84; PULSE 82; RESP 18; TEMP 36.4; O2SAT 97
--- NOTE | 2023-11-20 09:19 | ED.SKABFB ---
HPI - Skin/Abscess/Foreign Bdy General Chief complaint: Allergic Reaction Stated complaint: Bee Sting Time Seen by Provider: 11/20/23 09:14 Source: patient and RN notes reviewed Mode of arrival: ambulatory Limitations: no limitations History of Present Illness HPI narrative: Patient presents today after he was stung by a wasp on the right medial ankle yesterday afternoon which resulted in some redness and swelling. He has tried some topical Benadryl without relief. Reports some itching but no pain at this time. He noted some warmth to the ankle and wanted to make sure he has not developed any cellulitis. States he has not had this type of reaction to a sting in the past and was concerned. Related Data Home Medications Medication Instructions Recorded Confirmed risankizumab-rzaa 150 mg/1.66 mL 150 mg subcut [id number] 08/09/19 11/18/22 (75 mg/0.83mL x 2) subcut syringe kit (Skyrizi) Allergies Allergy/AdvReac Type Severity Reaction Status Date / Time No Known Allergies Allergy Verified 11/18/22 11:26 Review of Systems Review of Systems: CONSTITUTIONAL: Denies body aches, fever, chills, or sweats. EYES: Denies visual changes, redness, or discharge. ENT: Denies rhinorrhea, congestion, sore throat, or otalgia. CARDIOVASCULAR: Denies chest pain, palpitations, or edema. RESPIRATORY: Denies cough or dyspnea. GASTROINTESTINAL: Denies abdominal pain, nausea, vomiting, or diarrhea. GENITOURINARY: Denies dysuria or hematuria. SKIN: Denies rash, itching, or wounds.+ sting to right ankle MUSCULOSKELETAL: Denies back pain, joint pain, or myalgia. NEUROLOGIC: Denies headache, numbness, tingling, or weakness. PSYCH: Denies depression or anxiety. 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 Please see nursing chart for further information. There is no relevant family history pertinent to the presenting complaint Exam Narrative: GENERAL: Well-appearing, well-nourished, and in no acute distress. HEAD: Normocephalic, atraumatic. EYES: EOMI. No redness or drainage. Conjunctivae normal. ENT: Mucous membranes pink and moist. NECK: Normal AROM. CHEST: No respiratory distress. EXTREMITIES: Normal range of motion. Mild to moderate swelling of the right medial ankle with small puncture wound that has scabbed over. There is some mild erythema and warmth to the area. No induration or tenderness noted. No erythema or edema to the foot. Distal sensation intact. Capillary refill normal. Pedal pulse normal. Full range of motion of the ankle and toes SKIN: Warm, dry, no rash. Capillary refill normal. Normal skin turgor. NEURO: No focal deficits. Alert and oriented x3. Gait steady. PSYCH: Normal affect. No signs of depression or anxiety. Course Course Level of Care: Express Care Visit Vital Signs Vital signs: Vital Signs Temperature 97.6 F 11/20/23 09:01 Pulse Rate 82 11/20/23 09:01 Respiratory Rate 18 11/20/23 09:01 Blood Pressure 138/84 11/20/23 09:01 Pulse Oximetry 97 11/20/23 09:01 Oxygen Delivery Room Air
== END 2023-11-20 09:25 | disposition home or self-care (01) ==
PROVIDERS: Emergency Provider Nurse Practitioner
DX: T63.441A Toxic effect of venom of bees, accidental (unintentional), initial encounter (principal); J45.909 Unspecified asthma, uncomplicated; L40.0 Psoriasis vulgaris
CPT/HCPCS: 99213; G0463

== ENCOUNTER 2024-07-20 08:01 | Emergency (ER) | payer OTHER, SELFPAY ==
--- OUTSIDE RECORDS SUMMARY | 2024-07-20 08:19 | XMS_ITS | Clinical Summary ---
Author Organization [facility] Care Team Providers Care Oven Tender Name Role Phone Unavailable Primary Care Provider Unavailabl e Social History Tobacco Use Types Packs/Day Years Used Date Smoking Tobacco: Never Assessed Sex and Gender Information Value Date Recorded Sex Assigned at Not on file Legal Sex Male 8:37 PM CDT Gender Identity Not on file Sexual Orientation Not on file Plan of Treatment Not on file
--- OUTSIDE RECORDS SUMMARY | 2024-07-20 08:19 | XMS_ITS | Continuity of Care Document ---
Author Organization [facility] Address [address] [place] [address] [place] [address] Phone Care Team Providers Care Ordnance Handler Name Role Phone Tony Bell Unavailable Unavailable Procedures Procedure Date Office/outpatient Visit, [facility] Advance Directives Directive Yes / No Effective Date File Name No Information Encounters Encounter Description Practice Location Reason(s) For Visit Diagnoses Date Provider Providers Copied on Encounter Office/outpat ient Visit, [facility], [address] [place], [place], [id number], [place] tel:[phone] [facility] No Information [phone] Arabella Jimenez. [address] [facility] [address], [place], [address], [place]. tel:[phone] Family History Family Member Type Diagnosis Age At Onset No Information Payers Payer name Insurance type Covered democrat ID Authoriza tion(s) No Information Social History [...]
--- OUTSIDE RECORDS SUMMARY | 2024-07-20 08:19 | XMS_ITS | Clinical Summary ---
Author Organization [facility] Address [address] [place] [address] Care Team Providers Care Human Resources Specialist Name Role Phone None, Provider MD Primary Care Provider Unavaila ble Allergies No known active allergies Medications Risankizumab-rzaa (SKYRIZI, 150 MG DOSE, SC) 04/04/2020 Active Immunizations Name Administration Dates Next Due PFIZER COVID-19 (ORIGINAL FO RMULATION, PURPLE CAP) mRNA, LNP-S, PF, 30 MCG/0.3 ML DOSE 05/01/2020,04/08/2020 Social History Tobacco Use Types Packs/Day Years Used Date Smoking Tobacco: Never Smokeless Tobacco: Never Tobacco Cessation:Counseling Given: Not Answered Alcohol Use Standard Drinks/Week Comments Never 0 (1 standard drink = 0.6 oz pur e alcohol) Sex and Gender Information Value Date Recorded Sex Assigned at Not on file Legal Sex Male 5:17 PM CDT Gender Identity Not on file Sexual Orientation Not on file Last Filed Vital Signs Vital Sign Reading Time Taken Comments Blood Pressure 135/93 04/03/2023 9:37 PM OPTICAL SYSTEMS ENGINEER Pulse 101 04/03/2023 9:37 PM OPTICAL SYSTEMS ENGINEER Temperature 36.1 C (97 F) 04/03/2023 9:37 PM OPTICAL SYSTEMS ENGINEER Respiratory Rate 16 04/03/2023 9:37 PM OPTICAL SYSTEMS ENGINEER Oxygen Saturation 98% 04/03/2023 9:37 PM OPTICAL SYSTEMS ENGINEER Inhaled Oxygen Concentration - - Weight 79.4 kg (175 lb) 04/03/2023 9:37 PM OPTICAL SYSTEMS ENGINEER Height 157.5 cm (5' 2 ) 04/03/2023 9:37 PM OPTICAL SYSTEMS ENGINEER Body Mass Index 32.01 04/03/2023 9:37 PM OPTICAL SYSTEMS ENGINEER Plan of Treatment Health Maintenance Due Date Last Done Comments Colorectal Cancer Screening Colonoscopy (10 Years) 1968 Annual Physical 1971 Hepatitis C 1986 DTaP, Tdap and Td Vaccines ( 1 - Tdap) 1987 Hepatitis B Vaccines (3 of 3 - 19+ 3-dose series) 02/24/2016 11/01/2015, 08/24/2015 Zoster Vaccines (1 of 2) 2018 COVID-19 Vaccine (3 - 2023-2 5 season) 2023 05/01/2020, 04/08/2020 Influenza Adult (#1) 2024 01/31/2020, 02/20/2016 Meningococcal B Vaccine Aged Out No l onger eligible based on patient's age to complete this topic Meningococcal Vaccine Aged Out No abdon carole eligible based on patient's age to complete this topic Pneumococcal Vaccine: Pediatrics (0 to 5 Years) and At-Risk Patients (6 to 64 Years) Aged Out No longer eligible b ased on patient's age to complete this topic RSV Immunizations Under 20 Months Aged Out No longer eligible b ased on patient's age to complete this topic Insurance [employer] Care Teams Human Resources Specialist Relationship Specialty Start Date End Date None, Provider, PCP - General UNKNOWN PHYSICIAN SPECIALTY 04/03/23
--- OUTSIDE RECORDS SUMMARY | 2024-07-20 08:23 | XMS_ITS | Continuity of Care Document ---
Author Organization [facility] Address [address] [place] [address] [place] [address] Phone Care Team Providers Care Personal Fitness Trainer Name Role Phone Tony Bell Unavailable Unavailable Procedures Procedure Date Office/outpatient Visit, [facility] Advance Directives Directive Yes / No Effective Date File Name No Information Encounters Encounter Description Practice Location Reason(s) For Visit Diagnoses Date Provider Providers Copied on Encounter Office/outpat ient Visit, [facility], [address], [place], [place], [id number], [place] tel:[phone] [facility] No Information [phone] 0 Arabella Jimenez. [address] [facility] [address], [place], [address], [place]. tel:[phone] Family History Family Member Type Diagnosis Age [...]
[2024-07-20 08:28] VITALS: BP 121/81; PULSE 76; RESP 18; TEMP 36; O2SAT 99
--- NOTE | 2024-07-20 08:32 | ED_ITS ---
HPI - URI/Sore Throat General Chief Complaint: Upper Respiratory Infection Stated Complaint: cough / congestion Time Seen by Provider: 07/20/24 08:17 Source: patient, RN notes reviewed and old records reviewed Mode of arrival: ambulatory Limitations: no limitations History of Present Illness HPI Narrative: 54-year-old male presents to the [facility] with complaints of cough, congestion. Had taken a dose of Delsym which is not helping. Patient states that he had a viral infection about a month ago, recovered. 7-10 days ago cough and congestion returned. Denies chest pain, shortness of breath. Denies fevers. Onset (ago): day(s) (7-) Related Data Home Medications ?Medication ?Instructions ?Recorded ?Confirmed ?Last Taken ?Type risankizumab-rzaa 150 mg/1.66 mL 150 mg subcut [id number] 08/09/19 11/18/22 Unknown History (75 mg/0.83mL x 2) subcut syringe kit (Skyrizi) Allergies Allergy/AdvReac Type Severity Reaction Status Date / Time No Known Allergies Allergy Verified 07/20/24 08:28 Review of Systems Review of Systems: All systems reviewed & are unremarkable except as noted in HPI and below Constitutional: Constitutional: Reports no additional constitutional complaints ENT: Reports system reviewed and no additional complaints, except as documented Cardiovascular: Cardiovascular: Reports no additional cardiovascular complaints, Denies chest pain and Denies dyspnea Respiratory: Respiratory: Reports as per HPI, Reports chest congestion, Reports cough and Denies dyspnea Musculoskeletal: Musculoskeletal: Reports no additional musculoskeletal complaints Integumentary/Breasts: Skin/Breast: Reports system reviewed and no additional complaints, except as docu PMFSH Past Medical History Medical History Plaque psoriasis Irritable bowel Asthma Surgical History Surgical History History of vasectomy History of cholecystectomy Family History Family History Father Hypertension A-fib Mother CAD (coronary artery disease) Social History Social History Smoking status: Never smoker Alcohol intake: current Living arrangements: with family Occupation/Education: occupation 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 There is no relevant family history pertinent to the patient complaint. Exam Const: General: cooperative, healthy appearing, comfortable, no acute distress, well developed, alert and well nourished Nutritional Appearance: well nourished Orientation/consciousness: patient oriented x3 Limitations: no limitations HENMT: Head: normal to inspection Ears: hearing grossly normal bilaterally, external ears normal, TM's normal bilaterally, EAC's normal, mastoids normal and no periauricular adenopathy Face/Nose/Sinus: Normal external nose present, Normal nares present and No nasal discharge present Mouth: Yes Normal oral and palatal mucosa present, Yes lip normal, Yes tongue normal and Yes moist mucous membranes Throat: posterior oropharynx normal, uvula midline and no uvular edema Eyes: General: appearance normal, both eyes and all related structures Alignment and Position: alignment normal Neck: Neck: normal visual inspection, full ROM, no lymphadenopathy and no meningeal signs Chest: Chest palpation & inspection: normal inspection of the chest Resp: Effort & Inspection: normal respiratory effort and able to speak in complete sentences Auscultation: clear to auscultation bilaterally, no crackles, no rales, no rhonchi and no wheezes Cardio: Rate: regular rate Skin: General skin exam: normal color and no rashes or lesions noted Neuro: General: patient oriented x3, gait normal, moves all extremities and no meningeal signs Cognition (Neuro): normal cognition Speech: normal speech Gait exam (Neuro): Normal gait present Extrem: General: normal to inspection, full ROM, capillary refill normal and normal gait Psych: Appearance: grossly normal and well kempt Mental Status: mental status grossly normal Speech and movement: Normal speech and movement present and Clear speech present Affect: normal affect Attitude: cooperative Course Course Level of Care: Express Care Visit Vital Signs Vital signs: Vital Signs Temperature 96.8 F L 07/20/24 08:28 Pulse Rate 76 07/20/24 08:28 Respiratory Rate 18 07/20/24 08:28 Blood Pressure 121/81 07/20/24 08:28 Pulse Oximetry 99 07/20/24 08:28 Oxygen Delivery Room Air 07/20/24 08:28 Temperature 96.8 F L 07/20/24 08:28 Pulse Rate 76 07/20/24 08:28 Respiratory Rate 18 07/20/24 08:28 Blood Pressure 121/81 07/20/24 08:28 Pulse Oximetry 99 07/20/24 08:28 Oxygen Delivery Room Air 07/20/24 08:28 Reviewed MDM - URI/Sore Throat MDM Narrative Medical decision making narrative: Patient sitting comfortably in exam room. Nontoxic, vitals stable. Patient in no acute distress. Patient presents with 7-10 days of worsening cough, congestion. Unable to offer x-ray due to machine being down. But due to length of symptoms as well as patient being on vincent resee will cover with antibiotic, steroids, inhaler. Discussed with patient that this could be viral or inflammatory and symptoms may continue to return. We also discussed [id number]-[id number]-rowjiro treatment. patient appropriate for outpatient treatment with close follow-up Discharge instructions reviewed with patient, as well as provided in writing per nursing staff. The instructions also include specific and strict return/GO TO THE ER as well as f/u information. All questions have been answered, and the patient deny any further questions with discharge and discharge plan. Some parts of this dictation were generated by voice recognition software and may contain typographical and/or grammatical inaccuracies. Differential Diagnosis Differential diagnosis: Likely upper respiratory infection, otitis media, sinusitis, viral infection and bronchitis Critical Care Time Critical Care Time Critical Care Time: No Discharge Plan Discharge Clinical Impression: Bronchitis Patient Disposition: Home, Self-Care Condition: Stable Instructions: Antibiotic Form, Acute Bronchitis (ED) Additional Instructions: It is very important to treat your symptoms. Drink plenty of water, Gatorade, Pedialyte, ice pops or Jell-O. -Alternate Tylenol and Motrin per package directions for fever or pain. You can alternate every 4 hours -Antihistamine medication such as Zyrtec/Claritin/Emily during the day can hel p improve symptoms. -doing daily nasal irrigations can help relieve pressure your sinuses. Things like a Neti pot -Use Flonase twice a day for 5 days then daily to help reduce the inflammation and dry up your sinuses. -You can also use Mucinex. Be sure to drink plenty of water with this medication at least 8 ounces with every dose and it is important to drink 8 to 10 glasses of water per day. Water is a natural decongestant -Eat and drink things that are easy to swallow, like tea or soup, or popsicles. -Oral rinses such as: Salt water gargles and/or may use topical anesthetic (eg. Chloraseptic spray) or lozenges to relieve dryness or throat pain). -Frequent hand washing or hand fisher eel spear is one of the best ways to prevent spread of infection. -Using a vaporizer or humidifier at night will also help thin secretions and help with coughing up phlegm. -Follow up with primary care provider in 7-10 days if condition is not improving - For new or worsening symptoms go directly to the nearest ER Patient Language: Macedonian Prescriptions: New albuterol sulfate 90 mcg/actuation HFA aerosol inhaler 2 puff inhalation QID PRN (Reason: shortness of breath or wheezing) Qty: 6.7 0RF doxycycline monohydrate 100 mg tablet 100 mg PO BID Qty: 14 0RF prednisone 20 mg tablet See Rx Instructions .Route .COMPLEX Qty: 9 0RF Rx Instructions: Take 40 mg daily for 3 days, 20 mg daily for 3 days No Action Skyrizi 150mg/1.66mL(75 mg/0.83 mL x2) syringe kit 150 mg SUBCUT [id number] Follow-up/Referrals: Angelica Yeung APRN [Advanced Practice Nurse] - Jose Carlos,MD David [Primary Care Provider] - Stand Alone Forms: Work/School Release IP Time of Disposition: 08:57
== END 2024-07-20 09:01 | disposition home or self-care (01) ==
PROVIDERS: Emergency Provider Nurse Practitioner; PCP Family Medicine
DX: J40 Bronchitis, not specified as acute or chronic (principal); L40.0 Psoriasis vulgaris; J45.909 Unspecified asthma, uncomplicated; Z98.52 Vasectomy status
CPT/HCPCS: 99213; G0463

== ENCOUNTER 2024-12-10 16:11 | Emergency (ER) | payer OTHER, SELFPAY ==
--- OUTSIDE RECORDS SUMMARY | 2009-07-17 05:45 | XMS_ITS | Continuity of Care Document ---
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 [address] [facility] [address], [place], [address], [place]. tel:[phone] Family History Family Member Type Diagnosis Age At Onset No Information Payers Payer name Insurance type Covered libertarian ID Authoriza tion(s) No Information Social History Type Description Quantity Date Captured Comments Sex Male Smoking Status No Information Chief Complaint And Reason For Visit No Information Reason For Referral Reason For Referral No Information History Of Present Illness Encounter Date Complaint History Of Prese nt Illness No Information Functional Status Date Functional Assessmen t No Information Instructions Date Instruction Additional Infor mation No Information Assessments Type Assessment Date No Information Patient Care Teams Name Effective Dates (start - stop) Status Members No Information
--- OUTSIDE RECORDS SUMMARY | 2009-07-17 05:45 | XMS_ITS | Continuity of Care Document ---
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 Advance Directives Directive Yes / No Effective Date File Name No Information Encounters Encounter Description Practice Location Reason(s) For Visit Diagnoses Date Provider Providers Copied on Encounter Office/outpat ient Visit, [facility], [address], [place], [place], [id number], [place] tel:[phone] [facility] No Information [id number] 0 Arabella Jimenez. [address] [facility] [address], [place], [address], [place]. tel:[phone] Family History Family Member Type Diagnosis Age At Onset No Information Payers Payer name Insurance type Covered republican ID Authoriza tion(s) No Information Social History [...]
--- OUTSIDE RECORDS SUMMARY | 2024-12-10 16:14 | XMS_ITS | Clinical Summary ---
Author Organization [facility] Care Team Providers Care Food And Beverage Server Name Role Phone Unavailable Primary Care Provider [...]
--- OUTSIDE RECORDS SUMMARY | 2024-12-10 16:14 | XMS_ITS | Clinical Summary ---
Author Organization [facility] Address [address] [place] [address] Care Team Providers Care Production Engine Repairer Name Role Phone None, Provider MD Primary Care Provider Unavaila ble Allergies No known active allergies Medications Risankizumab-rzaa (SKYRIZI, 150 MG DOSE, SC) 04/04/2020 Active Immunizations Immunization Administration Dates Next Due PFIZER COVID-19 (ORIGINAL [...] Comments Blood Pressure 135/93 04/03/2023 9:37 PM SIDE BOSS Pulse 101 04/03/2023 9:37 PM SIDE BOSS Temperature 36.1 C (97 F) 04/03/2023 9:37 PM SIDE BOSS Respiratory Rate 16 04/03/2023 9:37 PM SIDE BOSS Oxygen Saturation 98% 04/03/2023 9:37 PM SIDE BOSS Inhaled Oxygen Concentration - - Weight 79.4 kg (175 lb) 04/03/2023 9:37 PM SIDE BOSS Height 157.5 cm (5' 2) 04/03/2023 9:37 PM SIDE BOSS Body Mass Index 32.01 04/03/2023 9:37 PM SIDE BOSS Plan of Treatment Health Maintenance Due Date Last Done Comments Colorectal Cancer Screening Colonoscopy (10 Years) 1968 Annual Physical 1971 Hepatitis C 1986 DTaP, Tdap and Td Vaccines ( 1 - Tdap) 1987 Hepatitis B Vaccines (3 of 3 - 19+ 3-dose series) 02/24/2016 11/01/2015, 08/24/2015 Pneumococcal Vaccine: 50+ Years (1 of 1 - PCV) 2018 Zoster Vaccines (1 of 2) 2018 COVID-19 Vaccine (3 - 2023-2 5 season) 2023 05/01/2020, 04/08/2020 Meningococcal B Vaccine Aged Out No l onger eligible based on patient's age to complete this topic Meningococcal Vaccine Aged Out No abdon carole eligible based on patient's age to complete this topic RSV Immunizations Under 20 Months Aged Out No longer eligible b ased on patient's age to complete this topic Insurance [employer] Care Teams Production Engine Repairer Relationship Specialty Start Date End Date None, Provider, PCP - General UNKNOWN PHYSICIAN SPECIALTY 04/03/23
--- NOTE | 2024-12-10 16:15 | ED_ITS ---
HPI - URI/Sore Throat General Chief Complaint: Upper Respiratory Infection Stated Complaint: Body Aches/Headache (positive covid test at home) Time Seen by Provider: 12/10/24 16:28 Source: patient and RN notes reviewed Mode of arrival: ambulatory Limitations: no limitations History of Present Illness HPI Narrative: 54-year-old male presents with concern for COVID exposure, headache this started last night with body aches and neck. He denies fever, runny nose, stuffy nose, sore throat,. He has had positive at home COVID test. MD elicited complaint: other (REDDY) Related Data Home Medications ?Medication ?Instructions ?Recorded ?Confirmed ?Last Taken ?Type risankizumab-rzaa 150 mg/1.66 mL 150 mg subcut [id number] 08/09/19 12/10/24 Unknown History (75 mg/0.83mL x 2) subcut syringe kit (Skyrizi) Allergies Allergy/AdvReac Type Severity Reaction Status Date / Time No Known Allergies Allergy Verified 12/10/24 16:14 Review of Systems Review of Systems: CONSTITUTIONAL: Denies malaise, chills, sweats, or fever. EYES: Denies visual changes, redness, or discharge. ENT: Denies rhinorrhea, congestion, sinus pain, otalgia and sore throat. CARDIOVASCULAR: Denies chest pain, palpitations, or edema. RESPIRATORY: Denies cough. Denies dyspnea. GASTROINTESTINAL: Denies abdominal pain, nausea, vomiting, diarrhea SKIN: Denies rash or itching. MUSCULOSKELETAL: Reports myalgia. NEUROLOGIC: Reports headache. 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 There is no relevant family history pertinent to the presenting complaint Exam Narrative: GENERAL: Well-appearing, well-nourished, and in no acute distress. HEAD: Normocephalic EYES: PERRLA, conjunctivae clear ENT: Nares clear. Mucous membranes moist. TM pearly armenta with sharp light reflex bilaterally; no tragal tenderness. Oropharynx not erythematous without lesions. Tonsils not enlarged and without exudate, no drooling, no hoarseness, no trismus, uvula midline. NECK: Supple. No lymphadenopathy CHEST: Clear to auscultation, breath sounds equal. No wheezing, rhonchi, rales, or stridor. No respiratory distress, speaks in full sentences. HEART: Regular rate and rhythm. No murmur heard. SKIN: Warm, dry, no rash. NEURO: Alert and oriented x3. PSYCH: Normal mood and affect Course Course Emergency Course: Patient is aware of diagnosis, understands and agrees to treatment plan. Anticipatory guidance given. Patient agrees to follow-up as directed and is aware of reasons to seek care at the emergency department. Portions of this record may have been created with voice recognition software Level of Care: Express Care Visit Vital Signs Vital signs: Reviewed. MDM - URI/Sore Throat MDM Narrative Medical decision making narrative: Differential diagnosis considered: Hollis virus, strep pharyngitis, allergic rhinitis, upper respiratory tract infection, sinusitis, rhinosinusitis, nasopharyngitis. viral pharyngitis, otitis media, otitis externa, pneumonia, bronchitis, viral cough syndrome, viral syndrome, and influenza. Exam findings show no acute concerns or changes; patient is non-toxic appearing and is in no distress. Patient is appropriate for outpatient treatment and follow-up. Lab Data Attestation: I reviewed the patient's lab results. Critical Care Time Critical Care Time Critical Care Time: No Discharge Plan Discharge Clinical Impression: COVID Patient Disposition: Home Condition: Stable Instructions: How to Recover from COVID-19 at Home (ED) Additional Instructions: Your rapid COVID test is positive. COVID is a virus, antibiotics are not effective against viruses. Your body has to kill viruses. ? Stay home when you are sick, except to get medical care. ? Stay home until your symptoms are resolving and you haven't had a fever for 24 hours. ? If you are self isolating at home where others live, use a separate room and bathroom for sick household members (if possible). Clean any shared rooms as needed, to avoid transmitting the virus. ? Wash your hands often with soap and water for at least 20 seconds, especially after blowing your nose, coughing, or sneezing; going to the bathroom; and before eating or preparing food. ? If soap and water are not available, use an alcohol-based hand firer kiln with at least 60% alcohol. ? Have a supply of clean, disposable face masks. Everyone, no matter their COVID diagnosis, should wear face masks while in the home. - Over the counter medications such as Tylenol every 4 hours, ibuprofen every 6 hours (you can alternate these for maximum effect), Mucinex DM for cough, and psuedoephedrine (you must ask the pharmacist for this) can help relieve symptoms while your body fights off the virus. Watch for symptoms and learn when to seek emergency medical attention. If someone is showing any of these signs, seek emergency medical care immediately: ? Trouble breathing ? Persistent chest pain/pressure ? Confusion ? Inability to wake or stay awake ? Bluish lips or face Call 911 or call ahead to your local emergency room: Notify the bottom saw operator that you are seeking care for someone who has or may have COVID Patient Language: Latvian Prescriptions: New Paxlovid 300 mg (150 mg x 2)-100 mg tablet See Rx Instructions .ROUTE .COMPLEX Qty: 30 0RF Rx Instructions: take TWO 150 mg tablets of nirmatrelvir with ONE 100 mg tablet of ritonavir twice daily for 5 days No Action Skyrizi 150mg/1.66mL(75 mg/0.83 mL x2) syringe kit 150 mg SUBCUT [id number] Follow-up/Referrals: Jose Carlos,MD David [Primary Care Provider, Unknown] Time of Disposition: 16:37
[2024-12-10 16:24] VITALS: BP 107/74; PULSE 82; RESP 18; TEMP 36.4; O2SAT 98
[2024-12-10 16:37] LABS: EDCOVIDSCREEN Positive (Negative)
== END 2024-12-10 16:38 | disposition home or self-care (01) ==
PROVIDERS: Emergency Provider Nurse Practitioner; PCP Family Medicine
DX: U07.1 COVID-19 (principal); J45.909 Unspecified asthma, uncomplicated; L40.0 Psoriasis vulgaris; Z98.52 Vasectomy status
CPT/HCPCS: 87426; 99213; G0463